=== PATIENT | male | born 1970 | race Caucasian/White ===

== ENCOUNTER 2021-09-07 14:29 | Emergency (ER) | payer OTHER ==
[~2021-09-07 14:29] MED LIST: ASPIR 8181 MG PO; ATORVASTATIN CA40 MG PO; BRILINTA90 MG PO; CLONAZEPAM 0.50.5 M1 PO; CLONAZEPAM 1 MG1 M1 PO; COLACE100 MG PO; CYMBALTA60 MG PO; FLOMAX0.4 MG PO; KEFLEX500 MG PO; LISINOPRIL2.5 M1 PO; NITROGLYCERIN0.4 MG SUBLING; PERCOCET 10-321 EACH PO; PERCOCET 7.5-31 EACH PO; PERCOCET PO; POTASSIUM20 PO; PROZAC20 MG PO; XANAX 0.5 MG0.5 MG PO
== END 2021-09-07 17:06 | disposition left against medical advice (07) ==
LOC: M.ERS 14:29
DX: R10.30 Lower abdominal pain, unspecified (principal); Z53.21 Procedure and treatment not carried out due to patient leaving prior to being seen by health care provider